=== PATIENT | female | born 1980 | race Asian ===

== ENCOUNTER 2023-09-02 15:08 | Emergency (ER) | payer MEDICAID, SELFPAY ==
[2023-09-02 15:15] VITALS: BP 106/68; PULSE 99; RESP 18; TEMP 36.7; O2SAT 100; BMI 20.2
[2023-09-02 15:34] LABS: Appearance Urine Clear (Clear); Bilirubin Urine Negative (Negative); Blood Urine 1+ (Negative); Color Urine Yellow (Yellow); Glucose Urine Negative (Negative); Ketones Urine Negative (Negative); Leukocyte Esterase Urine Negative (Negative); Nitrite Urine Negative (Negative); Protein Urine Negative (Negative); Urobilinogen Urine 0.2 (0.2-1.0); pH Urine 6.5 (5.0-8.5)
[2023-09-02 15:45] LABS: RBC Urine 0-2 (0-2); WBC Urine 0-2 (0-5)
--- NOTE | 2023-09-02 15:47 | CRLHL7_ITS ---
For Patients: As a result of the Century Cures Act, medical imaging exams and procedure reports are released immediately into your electronic medical record. You may view this report before your referring provider. If you have questions, please contact your health care provider. INDICATION: Bleeding, 18 weeks COMPARISON: none TECHNIQUE: Grayscale and color Doppler imaging was performed. Transabdominal images were obtained. FINDINGS: Sonographic imaging demonstrates a single living intrauterine gestation. Fetus demonstrates a regular cardiac rate of 152 beats per minute. Fetus has a variable orientation. The placenta lies posterior. The placenta is low lying and in some images appears approximately 1 cm from the cervical os. Amniotic fluid appears within normal limits. The single deepest pocket measures 2.9 cm. The cervix is closed and measures 3.6 cm in length. The composite ultrasound gestational age is calculated at 18 weeks and 2 days with an estimated sonographic due date of 02/01/2024. The estimated weight is 236 grams which lies at the 50 %. The following biometric measurements were obtained: Biparietal diameter: 4 cm/18 weeks 0 days 41% Head circumference: 15.3 cm/18 weeks and 2 days 41% Abdominal circumference: 13.1 cm/18 weeks and 5 days 60% Femur length: 2.7 cm/18 weeks and 1 day 37% The HC/AC ratio measures: 1.16 IMPRESSION: 1. Single live intrauterine gestation with a estimated sonographic gestational age of 18 weeks and 2 days. 2. Posterior placenta which is low lying, measuring approximately 1-2 cm from the cervical os. Recommend clinical and ultrasound follow-up. Dictated by Sammi Duncan MD @ 09/02/2023 6:39:24 PM Dictated by: Sammi Duncan MD @ 09/02/2023 18:39:43 (Electronically Signed)
--- NOTE | 2023-09-02 15:58 | ED.GENADULT ---
HPI - General Adult General Chief complaint: Vaginal Bleeding Stated complaint: Spotting blood Time Seen by Provider: 09/02/23 15:09 Source: patient and family Mode of arrival: ambulatory Limitations: no limitations History of Present Illness HPI narrative: 42-year-old female with a several week history of vaginal bleeding in . Currently about 18 weeks gestation, does not know her blood type, has not been medically evaluated during the course of this . LMP April 27. Reports that today she had slight increase in her bleeding, it is only with wiping a few small blood clots with that are pea-sized which she does show me on her phone. She does have a prior history of vertical done in [facility] 16 years ago but has had 1 uncomplicated and vaginal delivery in the [facility] system previously as well. I do not have these records. She does not know her Rh type. Denies any trauma or injury. No cramping or contractions. Has not yet noted movement in this . Unknown placental location. No dizziness, lightheadedness or shortness of breath. Past medical history benign per her report. This is her 3rd . ROS notable for the gynecological symptoms as above, otherwise denies times 12 systems Related Data Home Medications Medication Instructions Recorded Confirmed PrenaCare 09/02/23 Allergies Allergy/AdvReac Type Severity Reaction Status Date / Time No Known Drug Allergies Allergy Verified 09/02/23 15:18 PFSH PFS Social History Smoking Status: Never smoker How often do you have a drink containing alcohol: never AUDIT-C Alcohol total score: 0 Non-prescribed substance use: denies use Exam Const: Vital Signs, click to edit/add: Vital Signs - 24 hr 09/02/23 15:15 Temperature 98.0 F Pulse Rate [Right Pulse Oximeter] 99 Respiratory Rate 18 Blood Pressure [Ri ght Upper Arm] 106/68 Pulse Oximetry 100 Oxygen Delivery Me thod Room Air Documenting provider has reviewed patient's vital signs: yes Common normals: no apparent distress General appearance: cooperative, comfortable and well kempt HENMT: Common normals: normocephalic Head and scalp: normocephalic Eye: Common normals: conjunctivae normal General eye: normal appearance of both eyes Conjunctiva: conjunctiva(e) normal Neck & C-Spine: Common normals: full ROM and no lymphadenopathy Resp: Common normals: normal respiratory effort Effort & inspection: able to speak in complete sentences Cardio: Common normals: regular rate, regular rhythm, S1 normal heart sound, S2 normal heart sound and no murmurs Rate: regular rate Rhythm: regular rhythm Heart sounds: S1 normal and S2 normal GI: Common normals: Normal to inspection, nondistended, normoactive bowel sounds present, soft to palpation, non-tender, no hepatosplenomegaly and no masses Palpation: soft and no hepatosplenomegaly Other: Bedside ultrasound use confirming a single [place] IUP, placental looks posterior and near the cervical edge. Good movement and strong heart rate noted. Normal appearing amniotic fluid. Cannot clearly see the full cervix due to baby position and empty bladder. Extremity: Common normals: no pedal edema Psych: Common normals: thought process normal Appearance: well kempt Attitude: engaged Mood and affect: euthymic mood Thought process: normal thought process Skin: Common normals: no rashes or lesions noted General skin exam: no rashes or lesions noted Course Course ED Course: Bleeding in , suspect placental position abnormality, previa versus subchorionic hemorrhage. No signs of dangerous hemorrhage or compromise. Recommend formal ultrasound, attempt abdominal 1st, may gently attempt vaginal ultrasound if needed. Unknown blood type. Needs type drawn, hemoglobin and quant. Patient will need follow-up with OB, will likely need to talk to OB once findings are available. Reevaluation(s) Time of Reevaluation #1: 18:53 Reevaluation #1: Discussed ultrasound and lab findings with patient. I did also discuss with OB on-call. Pelvic rest recommended and alarm symptoms reviewed that would warrant ED presentation including soaking through 1 pad per hour, etc. symptomatic anemia. Blood type is Rh positive, does not need consideration for RhoGAM. Nothing per vagina until cleared by OB. Keep follow-up appointment later this week as is currently scheduled. Family verbalizes understanding and agreement. Vital Signs Vital signs: Initial Vital Signs Temperature 98.0 F 09/02/23 15:15 Temperature Source Temporal Artery Scan 09/02/23 15:15 Pulse Rate 99 09/02/23 15:15 Respiratory Rate 18 09/02/23 15:15 Blood Pressure 106/68 09/02/23 15:15 Blood Pressure Mean 80 09/02/23 15:15 Blood Pressure Position Sitting 09/02/23 15:15 Pulse Oximetry 100 09/02/23 15:15 Oxygen Delivery Method Room Air 09/02/23 15:15 Vital Signs Temperature 98.0 F 09/02/23 15:15 Pulse Rate 99 09/02/23 15:15 Respiratory Rate 18 09/02/23 15:15 Blood Pressure 106/68 09/02/23 15:15 Pulse Oximetry 100 09/02/23 15:15 Oxygen Delivery Method Room Air 09/02/23 15:15 Temperature 98.0 F 09/02/23 15:15 Pulse Rate 99 09/02/23 15:15 Respiratory Rate 18 09/02/23 15:15 Blood Pressure 106/68 09/02/23 15:15 Pulse Oximetry 100 09/02/23 15:15 Oxygen Delivery Method Room Air 09/02/23 15:15 Medical Decision Making Lab Data Lab results reviewed: Yes I reviewed the patient's lab results Lab results narrative: All reassuring. Labs: Lab Results 09/02/23 09/02/23 Range/Units 15:26 15:57 Hgb 12.2 (12.0-16.0) gm/dL HCG, Quant 42718.00 mIU/mL Urine Color Yellow (Yellow) Urine Appearance Clear (Clear) Urine pH 6.5 (5.0-8.5) Ur Specific [place] 1.010 (1.000-1.030) Urine Protein Negative (Negative) Urine Glucose (UA) Negative (Negative) Urine Ketones Negative (Negative) Urine Blood 1+ A (Negative) Urine Nitrite Negative (Negative) Urine Bilirubin Negative (Negative) Urine Urobilinogen 0.2 (0.2-1.0) Ur Leukocyte Esterase Negative (Negative) Urine RBC 0-2 (0-2) Urine WBC 0-2 (0-5) Ur Squamous Epith Cells None (None-Few) Urine Bacteria None (None) Blood Type O Positive Imaging Data Pelvic ultrasound: Attestation: I have reviewed the pertinent imaging results. My impression: Low lying placenta with friable appearing edge near the cervix, otherwise well growing fetus. Radiologist's impression: IMPRESSION: 1. Single live intrauterine gestation with a estimated sonographic gestational age of 18 weeks and 2 days. 2. Posterior placenta which is low lying, measuring approximately 1-2 cm from the cervical os. Recommend clinical and ultrasound follow-up. Dictated by Sammi Duncan MD @ 09/02/2023 6:39:24 PM Discharge Plan Discharge Clinical Impression: Low lying placenta with hemorrhage in second trimester, antepartum Patient Disposition: Home w/ Parent or Adult Condition: Stable Instructions: Placenta Previa (ED) Additional Instructions: As we discussed, your bleeding seems to be from a low lying placenta. The placenta is on the back side of the uterus which is good but it lays very low in the uterus, near the cervix opening. There appears to be an area of bleeding right at the edge of the cervix that is causing your spotting. The bleeding can worsen but there is nothing that can be done to prevent this other than making sure there is no intercourse, nothing in the vagina at all until you are told otherwise by your Ob provider. If the bleeding becomes very heavy as in soaking through a pad per hour, you need to come back to the emergency department. It is okay to use Tylenol for any vague discomfort. The baby looks to be growing excellent. Please follow-up as is planned with your Ob provider. For your reference, your blood type is O-positive and you do not need special consideration because of your blood type in . Activity Level: Activity as Tolerated Discharge Diet: Regular Prescriptions: No Action PrenaCare Stand Alone Forms: 1EQ Info Instructions
[2023-09-02 16:14] LABS: Hemoglobin* 12.2 gm/dL (12.0-16.0)
[2023-09-02 19:00] VITALS: BP 106/68; BP 123/69; PULSE 82; PULSE 99; RESP 14; RESP 18; TEMP 36.7; O2SAT 99
== END 2023-09-02 19:13 | disposition home or self-care (01) ==
LOC: ED 19:12
PROVIDERS: Emergency Provider Family Medicine
DX: O44.52 Low lying placenta with hemorrhage, second trimester (principal)
CPT/HCPCS: 36415; 76815; 76817; 81001; 84702; 85018; 86900; 86901; 99284

== ENCOUNTER 2023-10-31 11:05 | Outpatient (CLI) | payer BC, SELFPAY | END 2023-10-31 11:06 | disposition home or self-care (01) | LOC: NFLDREF 11-02 10:28 | PROVIDERS: Visit Provider Obstetrics & Gynecology | DX: Z34.92 Encounter for supervision of normal pregnancy, unspecified, second trimester (principal); O09.522 Supervision of elderly multigravida, second trimester; Z3A.26 26 weeks gestation of pregnancy | CPT/HCPCS: 86592; 86703; 86704; 86706; 86762; 86787; 86803; 86850; 86900; 86901; 87086; 87340 ==

== ENCOUNTER 2023-12-06 12:02 | Outpatient (CLI) | payer BC, SELFPAY ==
--- NOTE | 2023-12-06 12:15 | CRLHL7_ITS ---
For Patients: As a result of the Cures Act, medical imaging exams and procedure reports are released immediately into your electronic medical record. You may view this report before your referring provider. If you have questions, please contact your health care provider. INDICATION: GROWTH AND PLACENTA EDGE CHECK COMPARISON: 09/02/2023 TECHNIQUE: Real time thurston scale imaging of the fetus was performed. FINDINGS: Sonographic imaging demonstrates a single living intrauterine gestation. Fetus demonstrates a regular cardiac rate of 141 beats per minute. Fetus has a breech. The placenta lies posteriorly without evidence of placenta previa. The placental edge is 6.3 cm from the internal cervical os. Amniotic fluid volume appears normal and there is a single deepest vertical pocket: 6.4 cm. The estimated weight is 1935gm which lies at the 52nd %. On the prior OB ultrasound exam dated 09/02/2023 the estimated weight was at the 50th%. BPD 15th percentile. HC 43rd percentile. AC 76th percentile. FL 26th percentile. The HC/AC ratio measures 1.04 range (0.96-1.14). IMPRESSION: Sonographic gestational age 32 weeks 0 days and sonographic due date of 01/31/2024. Good correlation with dates. Posterior placental edge is located 6.3 cm from the internal cervical os. Dictated by Damon Bergman MD @ 12/06/2023 3:32:05 PM (Electronically Signed)
== END 2023-12-06 12:03 | disposition home or self-care (01) ==
LOC: US 12:02
PROVIDERS: Visit Provider Advanced Practice Midwife
DX: O44.43 Low lying placenta NOS or without hemorrhage, third trimester (principal); Z3A.32 32 weeks gestation of pregnancy
CPT/HCPCS: 76816

== ENCOUNTER 2023-12-31 12:59 | Outpatient (REF) | payer BC, SELFPAY | END 2023-12-31 13:00 | disposition home or self-care (01) | LOC: NFLDREF 12:59 | PROVIDERS: Visit Provider Obstetrics & Gynecology | DX: Z86.19 Personal history of other infectious and parasitic diseases (principal); Z36.9 Encounter for antenatal screening, unspecified | CPT/HCPCS: 86704; 86706; 87340; 87517 ==

== ENCOUNTER 2024-01-11 12:17 | Outpatient (CLI) | payer BC, SELFPAY ==
[2024-01-12 20:07] LABS: Strep B DNA Probe Negative (Negative)
[2024-01-12 20:13] LABS: Strep B Susceptibility Needed? No
== END 2024-01-11 12:18 | disposition home or self-care (01) ==
PROVIDERS: Visit Provider Obstetrics & Gynecology
DX: Z34.93 Encounter for supervision of normal pregnancy, unspecified, third trimester (principal)
CPT/HCPCS: 87081; 87653

== ENCOUNTER 2024-01-24 06:52 | Inpatient (IN) | payer BC, SELFPAY ==
[2024-01-24] VITALS (16 sets, daily range): BP systolic 104–136; BP diastolic 60–76; PULSE 53–98; RESP 16–18; TEMP 36.4–36.8; O2SAT 96–99; BMI 23.8
[2024-01-24] MEDS: OXYTOCIN 10 UNIT/ML INJ IM (08:05)
[2024-01-24] MEDS: LIDOCAINE 1 % PF 30 ML INJECTION (08:23)
[2024-01-24] MEDS: lidocaine HCL 2 % JELLY (TOP) STERILE 6 ML TOPICAL (08:23)
--- NOTE | 2024-01-24 08:42 | W.PM.LDBA ---
Documented by User: Charles Hobson 01/24/24 11:33 Subjective History of Present Illness Time Seen by Provider: 07:30 Date Seen: 01/24/24 Narrative: Patient is being admitted to Labor and Delivery in spontaneous onset of labor. She had spontaneous rupture of clear fluid at home at 0540 this morning. She is a 43 year old at 38.6 weeks gestation. Her full history and physical was dictated by H&P by [facility] on 01/11/24. Please see this for details. She desire . and mother are at bedside for support. Specific Issues/Plans CNM, VTOLAC Insufficient care [id number] H&P by [facility] on 01/11/24 1. Previous section at [facility] in 2005, vertical skin incision. Desires VTOLAC -Term delivery, no abnormal presentation per patient-low risk of vertical uterine incision -Reason for : suspicion for maternal cardiac ischemia and inability to push- patient states that she has had extensive cardio evaluation and no concerns. -Desires VTOLAC, has had for her second delivery -TOLAC consent form: signed 01/16/24 -36 week growth:Had US at 32 weeks with placenta follow-up, normal as below. 2. Bleeding in the second trimester/Low lying placenta: resolved (6.3cm) -Pelvic rest -MFM evaluation: 10/01/2023: Posterior low-lying placenta -F/U US at 32 weeks: 12/06/23: Posterior placental edge is located 6.3 cm from the internal cervical os. The estimated weight is 1935gm which lies at the 52nd, AC 76th. Breech. 3. AMA: -MFM referral ordered on 09/07/23: Completed 10/01/2023: Single intrauterine , EFW 40 percentile. No anomalies identified. Growth parameters an estimated weight consistent with established dates. Normal amount of amniotic fluid. Cervix appears long and closed. -Cell free DNA testing:Declined -Growth US at 32 weeks: see above -Weekly NST starting at 36 weeks -IOL 39-40 week: prefers not to have 4. Not interested in routine care, would want a home if possible: -Counseled against on 09/07/23 5. Hep B Core positive with OB labs- chronically infected Pt has hx of Hep B Needs repeat labs at 34 week visit, orders in place for follow up- if antigen + pt has current infection, if negative then is chronically infected. Labs drawn 12/31/23: Hep B surface antigen negative. Hepatitis-B core remains positive. HBV by NAAT: not detected. Chronic Hepatitis B Recommended GI referral, pt is considering no referral sent at this time 6. Rubella non immune RSV: declined OB - Problem Based A/P Additional Plan (1) Pain during labor: Status: Acute (2) 38 weeks gestation of : Status: Acute Plan 43 yr at 38.6 weeks gestation complicated by: hx of previous , Hepatitis B core positive. Labor type: Spontaneous Active labor Category 1 FHR pattern. Labor complicated by: None GBS negative Desire TOLAC PLAN: 1. Routine intrapartum cares as ordered. Continue with expectant management 2. Monitoring -continuous 3. Planning unmedicated . Candidate for analgesia of choice. 4. Patient encouraged to reposition and ambulate to promote physiologic labor and . 5. Anticipate Delivery/Labor/Induction Plan Plan: expectant management OB Result Labs Blood Type: O (+) positive OB Exam Physical Exam Vital signs: Temp Pulse Resp BP Pulse Ox 97.6 F 65 18 117/76 97 01/24/24 07:20 01/24/24 08:38 01/24/24 07:20 01/24/24 08:38 01/24/24 07:24 Narrative: Vitals Reviewed Constitutional:? Alert and oriented x3 Abdomen:? Soft, nontender, and gravid. confirmed with cervical exam. Extremities:? No edema or erythema Cervix: 8 cm/90%/-1station/vertex NST: 125 bpm/ Moderate variability/ accelerations/no decelerations/ every 2-3 contractions, lasting 50-70 sec Detailed Labor and Delivery Exam Patient Gravid: Yes Dilation (cm): 8 Effacement (%): 90 Contraction Frequency: 2-3 Contraction duration (sec): 70 Tachysystole: No Contraction intensity: Moderate Fetus (Single) Station: -1 Amniotic Membrane Status: SROM Amniotic Membrane Fluid Description: Clear Heart Rate Baseline: 125 Monitor Accelerations: Present Monitor Decelerations: Variable Mcfp Variability: Moderate (6-25) Documented by User: Lashonda Ware CNM 01/24/24 15:24 Subjective History of Present Illness Narrative: Patient is being admitted to Labor and Delivery in spontaneous onset of labor. She had spontaneous rupture of clear fluid at home at 0540 this morning. She is a 43 year old at 38.6 weeks gestation. Her full history and physical was dictated by [facility] on 01/11/24. Please see this for details. She desire . and mother are at bedside for support. Specific Issues/Plans GENESISM, VTOLA Insufficient care [id number] H&P by [facility] on 01/11/24 1. Previous section at [facility] in 2005, vertical skin incision. Desires VTOLAC -Term delivery, no abnormal presentation per patient-low risk of vertical uterine incision -Reason for : suspicion for maternal cardiac ischemia and inability to push- patient states that she has had extensive cardio evaluation and no concerns. -Desires VTOLAC, has had for her second delivery -TOLAC consent form: signed 01/16/24 -36 week growth:Had US at 32 weeks with placenta follow-up, normal as below. 2. Bleeding in the second trimester/Low lying placenta: resolved (6.3cm) -Pelvic rest -MFM evaluation: 10/01/2023: Posterior low-lying placenta -F/U US at 32 weeks: 12/06/23: Posterior placental edge is located 6.3 cm from the internal cervical os. The estimated weight is 1935gm which lies at the 52nd, AC 76th. Breech. 3. AMA: -MFM referral ordered on 09/07/23: Completed 10/01/2023: Single intrauterine , EFW 40 percentile. No anomalies identified. Growth parameters an estimated weight consistent with established dates. Normal amount of amniotic fluid. Cervix appears long and closed. -Cell free DNA testing:Declined -Growth US at 32 weeks: see above -Weekly NST starting at 36 weeks -IOL 39-40 week: prefers not to have 4. Not interested in routine care, would want a home if possible: -Counseled against on 09/07/23 5. Hep B Core positive with OB labs- chronically infected Pt has hx of Hep B Needs repeat labs at 34 week visit, orders in place for follow up- if antigen + pt has current infection, if negative then is chronically infected. Labs drawn 12/31/23: Hep B surface antigen negative. Hepatitis-B core remains positive. HBV by NAAT: not detected. Chronic Hepatitis B Recommended GI referral, pt is considering no referral sent at this time 6. Rubella non immune RSV: declined OB - Problem Based A/P Additional Plan (1) Pain during labor: Status: Acute (2) 38 weeks gestation of : Status: Acute Plan 43 yr at 38.6 weeks gestation complicated by: hx of previous , Hepatitis B core positive. Labor type: Spontaneous Active labor Category 1 FHR pattern. Labor complicated by: None GBS negative Desire TOLAC PLAN: 1. Routine intrapartum cares as ordered. Continue with expectant management 2. Monitoring -continuous 3. Planning unmedicated . Candidate for analgesia of choice. 4. Patient encouraged to reposition and ambulate to promote physiologic labor and . 5. Anticipate I,?Lashonda Ware APRN CNM, was present for visit and have reviewed and agree with documentation by certified nurse midwifery?student. OB Result Labs GBS Status: negative
--- NOTE | 2024-01-24 08:43 | W.PM.OBVAGDE ---
OB Procedure Vag Delivery Mother Details Mother Details: The patient is a 43 year-old, 3, Para 2, admitted on 01/24/24 at 38.6 weeks gestation. : 3 Para: 3 Weeks Gestation: 38.6 Admission Date: 01/24/24 Additional Details Amniotic Membrane Status: SROM Amniotic Membrane Rupture Date: 01/24/24 Amniotic Membrane Rupture Time: 05:40 Amniotic Membrane Fluid Description: Clear Analgesia/Anesthesia Type: None Waterbirth: No Pitcoin: Yes Intrapartal Events: None and Precipitous Labor <3 Hrs Labor Onset: 05:40 Complete: 07:45 Pushin:48 Heart: heart tones during second stage were reassuring in 2nd stage. Difficulty tracing as baby was and per maternal position on the floor Delivery Details Delivery Date: 01/24/24 Delivery Time: 07:55 Route of delivery: Gender: Female Viability: Alive; Heart Rate Present Position at Delivery: OA Delivery Details: Patient was admitted in active labor 80/90/-1 and progressed quickly without augmentation. She SROM with clear fluid at home today at 0540. Patient was complete at 0745 and started spontaneously pushing at 0748 . of a viable female at 0755 as patient was on her back with a slight left tilt on the floor mat. Baby delivered Vertex in OA. No nuchal cord or shoulder. Body delivered easily and without incident. Infant passed to mothers abdomen with a vigorous cry. Cord was clamped and cut at > 5 minutes. APGARS were 8 at one minute and 9 at five minutes respectively. Mouth was bulb suctioned. Placenta spontaneously delivered intact with 3 vessel cord at 0804. Fundus firm. 1st degree perineal laceration was identified and repaired with a mattress stitch. Hemostatic. Discussed risk and benefit of repair vs leaving it. Pt opted for repair. QBL 50 cc. Mother and baby stable; mother plans to breastfeed. Infant weight pending. 1 Minute Interval Total Score: 8 5 Minute Interval Total Score: 9 Additional Details Shoulder Dystocia: No Placental Delivery Description: Spontaneous Delivery repair: Vicryl Procedure Done: Global Laceration: Perineal - 1st Degree Blood Loss Measurement Type: QBL (50) Sponge/Need Count Correct: Yes Cord Vessel Description: 3 Vessels Event Summary Status: Mother and infant were stable after delivery. Disposition: floor
[2024-01-24] MEDS: LANOLIN CREAM 1 APPLIC TOPICAL (20:46)
[2024-01-25 01:03] VITALS: BP 99/57; PULSE 62; RESP 16; TEMP 36.6; O2SAT 97
[2024-01-25 04:53] VITALS: BP 100/64; PULSE 58; RESP 16; TEMP 36.6; O2SAT 97
[2024-01-25 09:09] VITALS: BP 96/56; PULSE 74; RESP 16; TEMP 36.4; O2SAT 98
--- NOTE | 2024-01-25 09:30 | PM.OBDSVD1 ---
DS: Providers Provider Date Seen: 01/25/24 Date of admission: 01/24/24 06:52 Primary care physician: Not a Local Provider Admitting Clinician: Nuria Oliva MD Attending Physician on discharge: eNhal Mendoza APRN, CNM DS: Diagnosis Discharge Diagnosis (1) care and examination immediately after delivery: Status: Acute (2) Lactating mother: Status: Acute (3) , delivered, current hospitalization: Status: Acute Exam Narrative: Exam Narrative: GENERAL APPEARANCE:? normal affect, alert, no distress MOOD:? appropriate CHEST:? clear to auscultation HEART:? regular rate and rhythm ABDOMEN:? soft, non-tender the uterine fundus is At Umbilicus, Midline and is appropriate for the stage of recovery. PERINEUM:? mild edema of the perineum, there is a Perineal Laceration,?1st degree, that is healing well. EXTREMITIES:? normal and no edema Const: Vital Signs, click to edit/add: Vital Signs - 24 hr 01/24/24 09:40 01/24/24 09:41 01/24/24 09:52 Temperature 97.6 F Pulse Rate 62 Pulse Rate [Pulse Oximeter] Respiratory Rate 16 16 Blood Pressure 118/70 Blood Pressure [Le ft Arm] Pulse Oximetry 97 Oxygen Delivery Me thod 01/24/24 09:53 01/24/24 13:43 01/24/24 16:59 Temperature 98.2 F 98.1 F Pulse Rate 61 Pulse Rate [Pulse Oximeter] 96 98 Respiratory Rate 16 16 Blood Pressure 115/71 Blood Pressure [Le ft Arm] 104/70 108/70 Pulse Oximetry 96 98 Oxygen Delivery Me thod Room Air Room Air 01/24/24 20:33 01/25/24 01:03 01/25/24 04:53 Temperature 97.6 F 97.8 F 97.9 F Pulse Rate Pulse Rate [Pulse Oximeter] 53 L 62 58 L Respiratory Rate 16 16 16 Blood Pressure Blood Pressure [Le ft Arm] 112/74 99/57 L 100/64 Pulse Oximetry 99 97 97 Oxygen Delivery Me thod Room Air Room Air Room Air 01/25/24 09:09 Temperature 97.6 F Pulse Rate Pulse Rate [Pulse Oximeter] 74 Respiratory Rate 16 Blood Pressure Blood Pressure [Le ft Arm] 96/56 L Pulse Oximetry 98 Oxygen Delivery Me thod Room Air Documenting provider has reviewed patient's vital signs: yes OB - DS: Summary Hospital Course Hospital Course: The patient is a 43 year old G 3 P 3 at 38 6/7 weeks gestation that was admitted to the [facility] on 01/24/24 for spontaneous onset of labor. She had an uncomplicated delivery. She delivered a viable female . The patient feels well. ?The pain is well controlled with current medications. ?She has no new complaints. ?She is breast feeding and reports things are going well. the patient has done well.? Vitals have been stable.? She has remained afebrile.? Has a good appetite, is tolerating a general diet. ?She is voiding without difficulty.? She is passing gas and has not had a bowel movement.? She is ambulating and denies any dizziness.? Has small amount of rubra lochia. She is planning NFP for prevention. Problems: none plan: Discharge home with baby. Follow up in 2 weeks and 6 weeks. , may see if needed Peripartum Data delivery method: Laceration description: Perineal - 1st Degree complications: none [place] Infant Gender: Female Discharge Plan: Home Status at Discharge Functional status at discharge: independent ambulation Overall status at discharge: patient is progressing back to baseline Time Spent with Patient Time attestation: Total time spent providing and/or coordinating discharge services: Time spent: Less than 30 minutes Discharge Plan Discharge Disposition: Home, Self-Care Date of Admission: 01/24/24 06:52 Attending Provider on Discharge: Nehal Mendoza Primary Care Provider: Provider,Not a Local Condition: Stable Anticipated Discharge Date/Time: 01/25/24 12:00 Discharge Medications: New acetaminophen 500 mg Tablet 1,000 mg PO Q6H PRNQty: 0 0RF docusate sodium 100 mg Capsule 100 mg PO DAILY Qty: 0 0RF ibuprofen 600 mg Tablet 600 mg PO Q6H PRNQty: 60 0RF Continued DHA 200 mg capsule 200 mg PO DAILY Discharge Orders: Discharge Order (Routine); Ordered 01/25/24 Ordered By: Nehal Mendoza Patient Education: OB Over the Counter Medication Information, OB Vaginal/Breast Feeding Additional Instructions: Discharge instructions were reviewed with the patient including signs and symptoms of infection and home going medications Nothing vaginally for 6 weeks: no tampons or intercourse Off Work or School for 6 weeks 2-week visit: discuss infant feeding concerns, review control options and screen for anxiety/depression. 6-week visit for an annual exam. consultation services are available to all mothers and babies for the first year after delivery.? To make an appointment, please call [phone]. Activity Level: Activity as Tolerated Discharge Diet: Regular Follow Up Appointments: [facility] [Provider Group] Forms: Voice[employer] Info Instructions
== END 2024-01-25 14:15 | disposition home or self-care (01) | DRG 560 ==
LOC: OB 01-25 09:30
PROVIDERS: Admitting Provider Obstetrics & Gynecology; Visit Provider Obstetrics & Gynecology
DX: O34.219 Maternal care for unspecified type scar from previous cesarean delivery (principal); O70.0 First degree perineal laceration during delivery; Z3A.38 38 weeks gestation of pregnancy; Z37.0 Single live birth; O98.42 Viral hepatitis complicating childbirth; B18.1 Chronic viral hepatitis B without delta-agent
CPT/HCPCS: 85025; 86592; 86850; 86900; 86901; G0463; A9270; J2001; J2590